=== PATIENT | male | born 1970 | race African-American/Black ===

== ENCOUNTER 2016-05-25 09:43 | Emergency (ER) | payer MEDICAID ==
[2016-05-25 11:50] LABS: BASOPHILS 0.5 % (0.0-2.0); EOSINOPHILS 3.8 % (0-7); HEMATOCRIT 45.6 % (42.0-54.0); HEMOGLOBIN 14.9 g/dL (13.5-17.5); IMMATURE GRANULOCYTES 0.3 % (0-5); LYMPHOCYTES 40.9 % (15-50); MCH 27.9 pg (26.0-34.0); MCHC 32.7 g/dL (31.0-37.0); MCV 85.2 fL (80.0-100.0); MEAN PLATELET VOLUME 11.2 fL (7.4-10.4); MONOCYTES 15.5 % (2-11); PLATELET COUNT 184 10x3/uL (130-400); RBC 5.35 10x6/uL (4.20-6.10); RDW 13.9 % (11.5-14.5)
[2016-05-25 12:03] LABS: ALBUMIN 3.9 g/dL (3.4-5.0); ALKALINE PHOSPHATASE 68 U/L (46-116); ALT (SGPT) 39 U/L (10-68); BILIRUBIN - TOTAL 0.42 mg/dL (0.2-1.3); CALC OSMOLALITY 277 mosm/kg (275-300); CALCIUM 9.1 mg/dL (8.5-10.1); CARBON DIOXIDE 29.3 mmol/L (21.0-32.0); CHLORIDE - SERUM 104 mmol/L (98-107); GLUCOSE 96 mg/dL (74-106); POTASSIUM - SERUM 4.4 mmol/L (3.5-5.1); PROTEIN - SERUM 7.9 g/dL (6.4-8.2); SODIUM 140 mmol/L (136-145); UREA NITROGEN 11 mg/dL (7-18); eGFR NON AFRICAN AMERICAN 85 mL/min (90-120)
== END 2016-05-25 13:18 | disposition left against medical advice (07) ==
LOC: D.ER 09:43
PROVIDERS: Emergency Medicine
DX: R42 Dizziness and giddiness (principal)

== ENCOUNTER 2016-05-25 13:54 | Emergency (ER) | payer MEDICAID | END 2016-05-25 17:42 | disposition home or self-care (01) | LOC: D.ER 13:54 | DX: B02.9 Zoster without complications (principal); J45.909 Unspecified asthma, uncomplicated; F17.200 Nicotine dependence, unspecified, uncomplicated ==